=== PATIENT | male | born 2000 | race Caucasian/White ===

== ENCOUNTER 2019-01-12 18:41 | Emergency (ER) | payer OTHER ==
[~2019-01-12] VITALS: Ht 170.2 cm; Wt 72.3 kg
[2019-01-12 19:33] LABS: BASO % 0.5 % (0.0-1.0); HEMATOCRIT 42.1 % (42.0-52.0); HEMOGLOBIN 14.8 g/dl (13.5-17.5); LYMPH # 2.5 10^3/uL (1.5-6.5); LYMPH % 37.9 % (24.0-44.0); MEAN CORPUSCULAR HEMOGLOBIN 31.2 pg (27.0-33.0); MEAN CORPUSCULAR HGB CONC 35.2 g/dl (32.0-36.5); MEAN CORPUSCULAR VOLUME 88.8 fl (80.0-96.0); MONO # 0.4 10^3/uL (0.0-0.8); MONO % 6.6 % (0.0-5.0); NEUTROPHILS # 3.6 10^3/uL (1.8-7.7); NEUTROPHILS % 54.7 % (36.0-66.0); PLATELET COUNT, AUTOMATED 231 10^3/uL (150-450); RED BLOOD COUNT 4.74 10^6/uL (4.30-6.10); WHITE BLOOD COUNT 6.5 10^3/uL (4.0-10.0)
[2019-01-12 20:06] LABS: ALBUMIN 4.7 GM/DL (3.2-5.2); ALT/SGPT 19 U/L (12-78); BILIRUBIN,DIRECT 0.2 MG/DL (0.0-0.2); BILIRUBIN,TOTAL 0.5 MG/DL (0.2-1.0); BLOOD UREA NITROGEN 14 MG/DL (7-18); CALCIUM LEVEL 8.9 MG/DL (8.5-10.1); CARBON DIOXIDE LEVEL 29 MEQ/L (21-32); CHLORIDE LEVEL 107 MEQ/L (98-107); CK-MB VALUE MASS < 1.0 NG/ML (<3.6); CPK CREATINE PHOSPHOKINASE 101 U/L (39-308); CREATININE FOR GFR 0.92 MG/DL (0.70-1.30); GLUCOSE, FASTING 86 MG/DL (70-100); LIPASE 128 U/L (73-393); MB/CK RELATIVE INDEX 0.99 (< OR =4); POTASSIUM SERUM 4.1 MEQ/L (3.5-5.1); SODIUM LEVEL 140 MEQ/L (136-145); TOTAL PROTEIN 7.9 GM/DL (6.4-8.2); TROPONIN I < 0.02 NG/ML (< 0.10)
--- NOTE | 2019-01-12 20:14 | REP ---
HISTORY: Chest pain. FINDINGS: The superior mediastinal structures are midline. The cardiac silhouette is unremarkable in size, shape and position. The diaphragmatic surfaces of the lungs are regular and the costophrenic angles are clear. The pulmonary arriaga are clear. The imaged osseous structures are intact. IMPRESSION: There is no acute cardiopulmonary disease. Electronically Signed by Cesar Salamanca DO 01/13/2019 04:36 P
[2019-01-12 21:26] VITALS: BP 124/85
--- NOTE | 2019-01-12 22:26 | ECGEPIP ---
Stationary ECG Study [facility] - ED Test Date: 2019-01-12 Pat Name: ARABELLA NOEL Department: Room: - Gender: M [employer]: : [id number] Requested By: SILVANO RODRIGUEZ PA-C. Order Number: [id number] Reading MD: Poppy Das Measurements Intervals [place] Rate: 70 P: 40 MS: 173 QRS: 98 QRSD: 100 T: 42 QT: 387 QTc: 419 Interpretive Statements SINUS RHYTHM BORDERLINE RIGHT AXIS DEVIATION NO PRIOR FOR COMPARISON Electronically Signed On 01-12-2019 22:25:58 EDT by Poppy Das
== END 2019-01-12 21:33 | disposition home or self-care (01) ==
LOC: M ED 18:41
DX: R07.89 Other chest pain (principal); R06.02 Shortness of breath; Z87.19 Personal history of other diseases of the digestive system; F17.210 Nicotine dependence, cigarettes, uncomplicated